=== PATIENT | male | born 1985 | race African-American/Black ===

== ENCOUNTER 2016-08-16 19:11 | Emergency (ER) | payer MEDICAID ==
[~2016-08-16] VITALS: Ht 180.3 cm; Wt 101.0 kg
[~2016-08-16 19:11] MED LIST: DILA100C PO; TYLETAB34 PO
[2016-08-16 19:13] VITALS: BP 141/86; PULSE 68; TEMP 98.5; O2SAT 97
[2016-08-16] MEDS ORDERED: POLY10O EACH EYE (20:23)
--- NOTE | 2016-08-16 20:26 | PD ---
HPI Chief Complaint: Eye Problems/Injury Time Seen by Provider: 20:24 Travel History International Travel<30 days: No Contact w/Intl Traveler<30days: No Traveled to known affect area: No History of Present Illness HPI 31-year-old black male presents emergency Department with a three-day history of red, watering, mucousy, itching eyes. Symptoms are worse the morning when he wakes up. He denies any blurred vision or double vision. No trauma. No recent illness. No glasses or contacts. Up-to-date with immunizations. No sick contacts. [facility] Past Medical History Narrative Medical Asthma, seizure disorder Asthma: Yes Diminished Hearing: No Respiratory: Yes (ASTHMA) Immunizations Current: Yes Seizures: Yes Tetanus Vaccination: < 5 Years Influenza Vaccination: No Past Surgical History Surgical History: No Previous Surgery Social History Alcohol Use: Yes (OCCASIONALLY) Tobacco Use: Yes (2 cigs/day) Substance Use: No Allergies-Medications (Allergen,Severity, Reaction): Coded Allergies: Peanut (Verified Allergy, Severe, Anaphylaxis, 08/16/16) Reported Meds & Prescriptions Reported Meds & Active Scripts Active Dilantin (Phenytoin Extended) 100 Mg Cap 100 Mg PO TID 30 Days Review of Systems Except as stated in HPI: all other systems reviewed are Neg Eyes: Positive: Drainage, Redness, Tearing, No: Diploplia, Blurred Vision, Photophobia, Foreign Body Sensation, Pain, Visual changes Physical Exam Narrative GENERAL: Well-developed, well-nourished in no acute distress. Nontoxic appearing. HEAD: Normocephalic, atraumatic. EYES: Pupils equal round and reactive. Extraocular motions intact. No scleral icterus. Positive injection with stringy mucoid discharge. Patient has a pinguecula bilaterally. ENT: TMs clear without erythema. The external auditory canals clear. Nose: clear . Posterior pharynx is pink and moist. No tonsillar edema or exudate. Uvula midline. Airway patent. NECK: Trachea midline.Supple, nontender, moves head freely. No central bony tenderness or spasm. CARDIOVASCULAR: Regular rate and rhythm without murmurs, gallops, or rubs. RESPIRATORY: Clear to auscultation. Breath sounds equal bilaterally. No wheezes , rales, or rhonchi. GASTROINTESTINAL: Abdomen soft, non-tender, nondistended. No hepato-splenomegaly , or palpable masses. No guarding. EXTREMITIES: No clubbing, cyanosis, or edema. No joint tenderness, effusion, or edema noted. BACK: Nontender without deformity or crepitance. No flank tenderness. Data Data Last Documented VS Vital Signs Date Time Temp Pulse Resp B/P Pulse Ox O2 Delivery O2 Flow Rate FiO2 08/16/16 19:13 98.5 68 141/86 97 Room Air MDM Medical Decision Making Medical Screen Exam Complete: Yes Emergency Medical Condition: Yes Medical Record Reviewed: Yes Differential Diagnosis MDM: High Differential diagnoses: Acute conjunctivitis (bacterial, viral, allergic, traumatic), glaucoma, iritis, traumatic globe injury, foreign body, corneal abrasion, corneal ulcer, diabetic retinopathy, photokeratitis, herpes keratitis , CMV retinitis Narrative Course This is conjunctivitis Diagnosis Primary Impression: Conjunctivitis Qualified Code: H10.33 - Acute bacterial conjunctivitis of both eyes Patient Instructions: General Instructions Additional Instructions: Rest. Wash eyelashes with baby shampoo 3 times daily. Warm compresses. Polytrim ophthalmic drops. Followup with an eye doctor in one week. Follow-up with a medical doctor one week. Return to the ER if any problems. Med/Other Pt SpecificInfo: Prescription(s) given Scripts Polymyxin B-Trimethoprim Opth Drops (Polytrim Opth Drops)10,000-0.1 Unit/Ml-% Soln1 Drop EACH EYE 4-6HR 7 Days Prov:Bereket Jacobson MD 08/16/16 Disposition: 01 DISCHARGE HOME Condition: Stable Raphael Mcmillan Aug 16, 2016 20:26
== END 2016-08-16 20:51 | disposition home or self-care (01) ==
LOC: NEPB 19:11
DX: H10.9 Unspecified conjunctivitis (principal); Z72.0 Tobacco use
CPT/HCPCS: 99283

== ENCOUNTER 2016-08-28 12:28 | Emergency (ER) | payer MEDICAID ==
[~2016-08-28] VITALS: Ht 180.3 cm; Wt 100.0 kg
[~2016-08-28 12:28] MED LIST changes: +POLY10O EACH EYE; -TYLETAB34 PO
[2016-08-28 13:18] VITALS: BP 133/81; PULSE 86; RESP 14; TEMP 98.5
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
[2016-08-28 15:00] VITALS: BP 134/70; PULSE 80; RESP 20; O2SAT 99
[2016-08-28] MEDS ORDERED: DILA100C PO (16:27)
[2016-08-28 16:30] VITALS: BP 136/71; PULSE 81; RESP 18; O2SAT 97
== END 2016-08-28 17:02 | disposition home or self-care (01) ==
LOC: NEPA 12:28
DX: G40.409 Other generalized epilepsy and epileptic syndromes, not intractable, without status epilepticus (principal); Z91.14 Patient's other noncompliance with medication regimen
CPT/HCPCS: 80185

== ENCOUNTER 2016-09-14 04:19 | Emergency (ER) | payer MEDICAID ==
[2016-09-14] VITALS (7 sets, daily range): BP systolic 94–142; BP diastolic 50–67; PULSE 79–105; RESP 15–22; TEMP 97.8–98.8; O2SAT 96–100
[~2016-09-14 04:19] MED LIST changes: -POLY10O EACH EYE
[2016-09-14] MEDS ORDERED: SODIUM CHLOR 0.9% 1000 ML INJ 1,000 ML IV ONE ×2 (04:25→04:30)
[2016-09-14] MEDS ORDERED: HALOPERIDOL LACTATE 5 MG/ML AMP IM ONE (04:30)
[2016-09-14] MEDS ORDERED: LORazepam 2 MG/ML VIAL IM ONE (04:30)
[2016-09-14] MEDS ORDERED: SODIUM CHLORIDE 0.9% FLUSH 5 ML FLUSH IVF PRN (04:30)
[2016-09-14 04:55] LABS: AUTOMATED NEUTROPHIL # 6.1 TH/MM3 (1.8-7.7); BASOPHIL # 0.1 TH/MM3 (0-0.2); BASOPHIL % 0.9 % (0.0-2.0); EOSINOPHIL % 0.4 % (0.0-4.0); HEMATOCRIT 45.2 % (39.0-51.0); HEMO FLAGS DIFF FINAL; LYMPH % 31.7 % (9.0-44.0); LYMPHOCYTE # 3.1 TH/MM3 (1.0-4.8); MEAN CELL VOLUME 92.2 FL (80.0-100.0); MEAN CORPUSCULAR HEMOGLOBIN 31.4 PG (27.0-34.0); MEAN CORPUSCULAR HGB CONC 34.1 % (32.0-36.0); MONO % 4.9 % (0.0-8.0); NEUT % 62.1 % (16.0-70.0); PLATELET COUNT 236 TH/MM3 (150-450); RED BLOOD COUNT 4.91 MIL/MM3 (4.50-5.90); WHITE BLOOD COUNT 9.8 TH/MM3 (4.0-11.0)
[2016-09-14 05:15] LABS: ANION GAP 15 MEQ/L (5-15); BICARBONATE 20.2 MEQ/L (21.0-32.0); BLOOD UREA NITROGEN 12 MG/DL (7-18); CHLORIDE 105 MEQ/L (98-107); GLOMERULAR FILTRATION RATE 94 ML/MIN (>89); POTASSIUM 3.5 MEQ/L (3.5-5.1); SODIUM (NA) 140 MEQ/L (136-145)
[2016-09-14] MEDS ORDERED: FOSPHENYTOIN INJ 1,000 MGPE in SODIUM CHLORIDE 0.9% INJ 50 ML IV ONE (06:15)
--- NOTE | 2016-09-14 07:58 | PD ---
HPI Chief Complaint: Seizure Time Seen by Provider: 07:52 Travel History International Travel<30 days: No Contact w/Intl Traveler<30days: No Traveled to known affect area: No History of Present Illness HPI 31-year-old male history of epilepsy arrives following 3 episodes of seizure. He requires restraints en route. No Ativan or antiepileptic was given. The patient takes Dilantin. Alcohol on breath. History limited by combative state. Patient upon arrival require 4 point restraints. Ativan and Haldol also administered upon arrival. [facility] Past Medical History Medical History: Denies Significant Hx Asthma: Yes Diminished Hearing: No Respiratory: Yes (ASTHMA) Immunizations Current: Yes Seizures: Yes Past Surgical History Surgical History: No Previous Surgery Social History Alcohol Use: Yes (OCCASIONALLY) Tobacco Use: Yes (2 cigs/day) Substance Use: No Allergies-Medications (Allergen,Severity, Reaction): Coded Allergies: Bee Sting (Verified Allergy, Severe, Anaphylaxis, 08/28/16) Peanut (Verified Allergy, Severe, Anaphylaxis, 08/28/16) Pineapple (Verified Allergy, Severe, Anaphylaxis, 08/28/16) Reported Meds & Prescriptions Reported Meds & Active Scripts Active Dilantin (Phenytoin Extended) 100 Mg Cap 100 Mg PO TID 60 Days Review of Systems ROS Limitations: Clinical Condition, Combative Physical Exam Narrative GENERAL: Well-nourished well-developed 31-year-old male combative SKIN: Warm and dry. HEAD: Atraumatic. Normocephalic. EYES: Pupils equal and round. No scleral icterus. No injection or drainage. ENT: No nasal bleeding or discharge. Mucous membranes pink and moist. NECK: Trachea midline. No JVD. CARDIOVASCULAR: Regular rhythm. Tachycardiac RESPIRATORY: No accessory muscle use. Clear to auscultation. Breath sounds equal bilaterally. GASTROINTESTINAL: Abdomen soft, non-tender, nondistended. Hepatic and splenic margins not palpable. MUSCULOSKELETAL: No obvious deformities. No clubbing. No cyanosis. No edema. NEUROLOGICAL: Moving all extremities in coordinated fashion. No facial asymmetry or focal cranial nerve deficit. Unable to assess in any more detail PSYCHIATRIC: Combative. Data Data Last Documented VS Vital Signs Date Time Temp Pulse Resp B/P Pulse Ox O2 Delivery O2 Flow Rate FiO2 09/14/16 06:34 90 18 99 Nasal Cannula 3 09/14/16 04:36 98.8 142/67 Orders Complete Blood Count With Diff (09/14/16 04:25) Basic Metabolic Panel (Bmp) (09/14/16 04:25) Alcohol (Ethanol) (09/14/16 04:25) Phenytoin (Dilantin) (09/14/16 04:25) Drug Screen, Random Urine (09/14/16 04:25) Blood Glucose (09/14/16 04:25) Ecg Monitoring (09/14/16 04:25) Iv Access Insert/Monitor (09/14/16 04:25) Oximetry (09/14/16 04:25) Sodium Chlor 0.9% 1000 Ml Inj (Ns 1000 M (09/14/16 04:25) Sodium Chloride 0.9% Flush (Ns Flush) (09/14/16 04:30) Sodium Chlor 0.9% 1000 Ml Inj (Ns 1000 M (09/14/16 04:30) Restraints Violent (09/14/16 04:25) Haloperidol Inj (Haldol Inj) (09/14/16 04:30) Lorazepam Inj (Ativan Inj) (09/14/16 04:30) Fosphenytoin Inj (Cerebyx Inj) (09/14/16 06:15) Labs Laboratory Tests Test 09/14/16 04:35 White Blood Count 9.8 TH/MM3 Red Blood Count 4.91 MIL/MM3 Hemoglobin 15.4 GM/DL Hematocrit 45.2 % Mean Corpuscular Volume 92.2 FL Mean Corpuscular Hemoglobin 31.4 PG Mean Corpuscular Hemoglobin 34.1 % Concent Red Cell Distribution Width 13.0 % Platelet Count 236 TH/MM3 Mean Platelet Volume 8.8 FL Neutrophils (%) (Auto) 62.1 % Lymphocytes (%) (Auto) 31.7 % Monocytes (%) (Auto) 4.9 % Eosinophils (%) (Auto) 0.4 % Basophils (%) (Auto) 0.9 % Neutrophils # (Auto) 6.1 TH/MM3 Lymphocytes # (Auto) 3.1 TH/MM3 Monocytes # (Auto) 0.5 TH/MM3 Eosinophils # (Auto) 0.0 TH/MM3 Basophils # (Auto) 0.1 TH/MM3 CBC Comment DIFF FINAL Differential Comment Sodium Level 140 MEQ/L Potassium Level 3.5 MEQ/L Chloride Level 105 MEQ/L Carbon Dioxide Level 20.2 MEQ/L Anion Gap 15 MEQ/L Blood Urea Nitrogen 12 MG/DL Creatinine 1.11 MG/DL Estimat Glomerular Filtration 94 ML/MIN Rate Random Glucose 99 MG/DL Calcium Level 8.6 MG/DL Phenytoin (Dilantin) Level LESS THAN 0.4 MCG/ML Ethyl Alcohol Level 173 MG/DL [facility] Medical Decision Making Medical Screen Exam Complete: Yes Emergency Medical Condition: Yes Medical Record Reviewed: Yes Differential Diagnosis Subtherapeutic Dilantin, epilepsy, seizure, alcoholism Narrative Course Patient has subtherapeutic Dilantin level. Celebrex ordered. Oncoming provider to reassess and disposition appropriately, likely discharged home. Patient arrived with the Dilantin prescription filled with tablets. Callum Goodwin MD Sep 14, 2016 07:58
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
== END 2016-09-14 14:32 | disposition home or self-care (01) ==
LOC: NEPC 04:19
DX: G40.909 Epilepsy, unspecified, not intractable, without status epilepticus (principal); Z72.0 Tobacco use
CPT/HCPCS: 80048; 80185; 80320; 85025; 96361; 96365; 96372; 99285; J1630; J2060; J7030; Q2009

== ENCOUNTER 2016-10-23 11:18 | Emergency (ER) | payer MEDICAID ==
[~2016-10-23] VITALS: Ht 180.3 cm; Wt 100.0 kg
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
[2016-10-23 11:49] LABS: BACTERIA, URINE RARE /hpf; BLOOD, URINE MOD (NEG); COMMENT (UR) CULTURE INDICATED; CULTURE IF INDICATED CULTURE INDICATED; GLUCOSE,URINE NEG (NEG); KETONE, URINE NEG (NEG); NITRITE,URINE NEG (NEG); URINE COLOR YELLOW (YELLW/STRAW)
[2016-10-23] MEDS ORDERED: ZITH500T PO (11:59)
[2016-10-23] MEDS ORDERED: LIDOCAINE HCL 1% 50 ML VIAL XX ONE (12:00)
[2016-10-23] MEDS ORDERED: cefTRIAXone 250 MG VIAL IM ONE (12:00)
[2016-10-23 13:04] VITALS: BP 137/74; PULSE 80; RESP 15; TEMP 98.1; O2SAT 100
[2016-10-23 16:51] LABS: CHLAMYDIA PCR NOT DETECTED (NOT DETECT); NEISSERIA PCR DETECTED (NOT DETECT)
== END 2016-10-23 13:07 | disposition home or self-care (01) ==
LOC: NEPB 11:18
DX: N34.2 Other urethritis (principal)
CPT/HCPCS: 81001; 87086; 87491; 87591; 96372; 99283; J0696